=== PATIENT | female | born 1960 | race African-American/Black ===

== ENCOUNTER 2023-10-24 04:06 | Day surgery (SDC) | payer BC ==
[2023-10-19 07:51] VITALS: BMI 34.4
[2023-10-24] MEDS ORDERED: MIDAZOLAM HCL 2 MG/2 ML SINGLE DOSE VIAL ONE (07:21)
[2023-10-24] MEDS ORDERED: PROPOFOL 20 ML ONE ×3 (07:21→10:10)
[2023-10-24] MEDS ORDERED: THROMBIN (BOVINE) 5,000 UNIT VIAL TP ONE (07:26)
[2023-10-24] MEDS ORDERED: BUPIVACAINE HCL/PF 0.5% (5MG/ML) 10 ML VIAL ONE (07:26)
[2023-10-24] MEDS ORDERED: VANCOMYCIN 1,000 MG VIAL (RESTRICTED TO ID ONLY) ONE (07:26)
[2023-10-24] MEDS ORDERED: BACITRACIN ZINC 15 GM TUBE TOPICAL OINTMENT ONE (07:27)
[2023-10-24] MEDS ORDERED: SUCCINYLCHOLINE CHLORIDE 200 MG/10 ML SYRINGE ONE (08:20)
[2023-10-24] MEDS ORDERED: HYDROmorphone HCl 2 MG/ML VIAL ONE (08:30)
[2023-10-24] MEDS ORDERED: PROPOFOL 40 ML ONE ×2 (08:41→09:28)
[2023-10-24] MEDS: ceFAZolin SODIUM 1 GM VIAL IVPB ONE (08:45)
[2023-10-24] MEDS: TRANEXAMIC ACID 1000 MG/10 ML VIAL IVPB ONE (08:45)
[2023-10-24] MEDS: VANCOMYCIN 500 MG VIAL (RESTRICTED TO ID ONLY) IVPB ONE (08:45)
[2023-10-24] MEDS: BUPIVACAINE HCL/PF 0.5% (5 MG/ML) 30 ML VIAL IJ ONE (10:20)
[2023-10-24] MEDS: BACITRACIN ZINC 15 GM TUBE TOPICAL OINTMENT TP ONE (10:44)
[2023-10-24] MEDS ORDERED: ONDANSETRON 4 MG/2 ML VIAL IVPUSH PRN ×2 (10:46→11:02)
[2023-10-24] MEDS: D5-1/2NS+20 MEQ KCL - 20 MEQ/1,000 ML INFUS.BAG IV SCH (12:50)
[2023-10-24] MEDS: diazePAM 5 MG TABLET PO SCH (13:42)
[2023-10-24] MEDS: DOCUSATE SODIUM 100 MG CAPSULE (FP) PO SCH (13:43)
[2023-10-24] MEDS: CEFAZOLIN 1 GM in DEXTROSE 5%-WATER - 50 ML IVPB SCH (17:34)
[2023-10-24] MEDS: ACETAMINOPHEN 1000 MG/100 ML BAG IVPB PRN (20:15)
[2023-10-24] MEDS: ATORVASTATIN CA 10 MG TABLET (FP) PO SCH (21:10)
[2023-10-24] MEDS: LACTATED RINGERS SOLUTION 1,000 ML IV SCH (22:03)
[2023-10-25] MEDS: NIFEdipine E.R 60 MG TABLET PO SCH (09:14)
[2023-10-25] MEDS: LOSARTAN POTASSIUM 50 MG TABLET PO SCH (09:14)
[2023-10-25 11:06] LABS: BASO % 0.2 % (0-2.0); EOS % 0.1 % (0-4.5); HEMATOCRIT 33.8 % (32.4-45.2); LYMPH % 11.1 % (8-40); MCH 30.7 pg (25.7-33.7); MCHC 35.4 g/dl (32.0-36.0); MEAN CELL VOLUME 86.6 fl (80-96); MEAN PLT VOLUME 8.8 fl (7.5-11.1); MONO % 11.7 % (3.8-10.2); NEUT % 76.9 % (42.8-82.8); PLATELET COUNT 252 10^3/uL (134-434); RBC 3.91 M/mm3 (3.60-5.2); RDW 14.4 % (11.6-15.6); WHITE BLOOD COUNT 14.2 K/mm3 (4.0-10.0)
[2023-10-25 11:23] VITALS: RESP 18
[2023-10-25 11:33] LABS: POTASSIUM 4.4 mmol/L (3.5-5.1)
[2023-10-25 11:35] LABS: BLOOD UREA NITROGEN 8.8 mg/dL (7-18)
[2023-10-25] MEDS: oxyCODONE HCL 5 MG TABLET PO PRN (13:42)
[2023-10-25 15:20] VITALS: BP 161/73; PULSE 91; TEMP 99.1
[2023-10-25] MEDS: KETOROLAC TROMETHAMINE 30 MG/1 ML VIAL IVPUSH PRN (16:37)
[2023-10-25] MEDS: CEPHALEXIN MONOHYDRATE 500 MG CAPSULE (UD) PO SCH (17:18)
== END 2023-10-25 17:27 | disposition home or self-care (01) ==
LOC: JASUSAT 04:06 → EDSTATUS 08:00 → J8W 13:23 → JASUSAT 10-25 17:27
PROVIDERS: ATTEND Neurological Surgery
PROC: 0SG1071 Fusion of 2 or more Lumbar Vertebral Joints with Autologous Tissue Substitute, Posterior Approach, Posterior Column, Open Approach (ICD-10-PCS; 2023-10-24)
PROC: 01NB0ZZ Release Lumbar Nerve, Open Approach (ICD-10-PCS; principal; 2023-10-24 08:00)
DX: M48.07 Spinal stenosis, lumbosacral region (principal); M54.17 Radiculopathy, lumbosacral region; Z98.890 Other specified postprocedural states; I10 Essential (primary) hypertension; I25.10 Atherosclerotic heart disease of native coronary artery without angina pectoris; E66.9 Obesity, unspecified; Z68.34 Body mass index [BMI] 34.0-34.9, adult
CPT/HCPCS: 36415; 72100-TC-FY; 76000-TC-FY; 80051; 82540; 84520; 85025; 86850; 86900; 86901; 94010; 94760; 97116-GP; 97161-GP; J0131